=== PATIENT | female | born 1985 | race Caucasian/White ===

== ENCOUNTER → 2022-06-12 | Outpatient (CLI) | payer MEDICAID ==
[~2022-06-12] VITALS: Ht 160 cm; Wt 86.2 kg
[~2022-06-12] MED LIST: AMPH20TA2 PO; DESV1TAB15 PO; HYDR-3682 PO
== END | disposition home or self-care (01) ==
LOC: SUR 14:55 → EDSTATUS 07-10 07:00
PROVIDERS: ATTEND Orthopaedic Surgery Sports Medicine
DX: S93.499A Sprain of other ligament of unspecified ankle, initial encounter (principal); Z20.822 Contact with and (suspected) exposure to COVID-19; X58.XXXA Exposure to other specified factors, initial encounter; Y93.89 Activity, other specified; Y92.89 Other specified places as the place of occurrence of the external cause; Y99.8 Other external cause status